=== PATIENT | female | born 1990 | race Caucasian/White ===

== ENCOUNTER 2016-11-16 21:20 | Emergency (ER) | payer OTHER ==
[~2016-11-16] VITALS: Ht 167.6 cm; Wt 122.5 kg
[~2016-11-16 21:20] MED LIST: AMOXICILLIN500 M2 PO; AMOXICILLIN500 MG PO; AMOXIL500 MG PO; ANAPROX DS550 MG PO; ANUSOL HC,ANUCO25 MG PO; AUGMENTIN 875 M1 TAB PO; AVPAK AZITHROM250 M1 PO; BACTRIM DS 8001 TA1 PO; BENTYL10 MG PO; BUSPIRONE10 MG PO; CEFDINIR300 MG PO; CIPRO250 MG PO; CIPRO500 MG PO; CIPRODEX 0.3%-7.5 ML OT; CLARITIN10 MG PO; COLACE-T100 MG PO; COMPAZINE10 MG PO; FE-TABS325 MG PO; FERROUS SULFAT325 MG PO; FLEXERIL5 MG PO; HYDROCODONE BIT1 T11 PO; IBU800 M1 PO; K-LOR 20MEQ20 ME1 PO; KEFLEX500 MG PO; LATU80TA PO; LOMOTIL 0.025 M1 TA1 PO; MACROBID100 M1 PO; MIRALAX POWDER255 GM PO; MOTRIN800 MG PO; NAPROSYN500 MG PO; NATURE'S BLEND F1 MG PO; NKHM; NORCO 325 MG-51 TAB PO; PENICILLIN VK500 MG PO; PERCOCET 325 MG1 TA5 PO; PHENERGAN25 M1 PO; PREDNISONE20 M1 PO; PRENATAL1 TA1 PO; PYRIDIUM200 MG PO; ROBAXIN500 MG PO; TAMIFLU75 MG PO; THERA TABS1 TAB PO; TORADOL10 MG PO; TRIMOX500 MG PO; ULTRAM50 MG PO; VITAMIN B-11 TAB PO; Vicodin 5/500 505 MG PO; XANAX0.25 MG PO; ZANTAC150 MG PO; ZITHROMAX Z PA250 MG PO; ZOFRAN 4 MG ED2 TAB PO; ZOFRAN ODT4 MG PO; ZOFRAN ODT4 MG SL; ZOFRAN ODT8 MG PO; ZOFRAN4 MG PO; ZYRTEC10 M2 PO; ZYRTEC10 MG PO; Zofran4 MG PO; [UNRECOGNIZED DRUG - OTHER] PO
[2016-11-16 21:42] VITALS: BP 143/57
[2016-11-16] MEDS ORDERED: NAPROSYN500 MG PO (22:07)
[2016-11-16] MEDS ORDERED: MEDROL DOSEPAK4 MG PO (22:07)
== END 2016-11-16 22:10 | disposition home or self-care (01) ==
LOC: ED 21:20
DX: M25.551 Pain in right hip (principal); F17.200 Nicotine dependence, unspecified, uncomplicated; Z90.49 Acquired absence of other specified parts of digestive tract; Z88.1 Allergy status to other antibiotic agents; Z88.8 Allergy status to other drugs, medicaments and biological substances

== ENCOUNTER 2016-11-26 16:15 | Emergency (ER) | payer OTHER ==
[~2016-11-26] VITALS: Ht 167.6 cm; Wt 122.5 kg
[~2016-11-26 16:15] MED LIST changes: +MEDROL DOSEPAK4 MG PO
[2016-11-26 16:49] VITALS: BP 108/53
[2016-11-26 17:05] LABS: BASO % 0.4 % (0.0-1.0); EOS # 0.1 10*3/uL (0.0-0.4); EOS % 1.2 % (1.0-4.0); HEMOGLOBIN 13.8 g/dl (12.0-16.0); LYMPH # 1.9 10*3/uL (1.3-4.4); LYMPH % 20.6 % (27.0-41.0); MEAN CELL VOLUME 90.3 fl (81.0-99.0); MEAN CORPUSCULAR HGB 30.4 pg (27.0-31.0); MEAN CORPUSCULAR HGB CONC 33.7 g/dl (33.0-37.0); MEAN PLATELET VOLUME 10.7 fl (9.6-12.3); MONO # 0.5 10*3/uL (0.1-1.0); MONO % 5.7 % (3.0-9.0); NEUT # 6.4 10*3/uL (2.3-7.9); NEUT % 71.9 % (47.0-73.0); PLATELET COUNT AUTOMATED 225 10*3/uL (130-400); RED BLOOD COUNT 4.54 10*6/uL (4.10-5.10); RED CELL DISTRI WIDTH 12.6 % (0-14.5)
[2016-11-26 17:21] LABS: ALBUMIN 3.7 gm/dl (3.1-4.5); ALKALINE PHOSPHATASE 69 U/L (45-117); BILIRUBIN, TOTAL 0.3 mg/dl (0.2-1.0); BUN 14 mg/dl (7-24); CARBON DIOXIDE 26 mmol/L (21-32); CHLORIDE 107 mmol/L (98-107); EST GLOM FILT AFRICAN AMERICAN > 60 ml/min; GLUCOSE 101 mg/dL (65-99); POTASSIUM 3.8 mmol/L (3.5-5.1); SGOT/AST 12 IU/L (3-35); SGPT/ALT 22 U/L (12-78); SODIUM 141 mmol/L (136-145)
[2016-11-26 17:25] LABS: TROPONIN I < 0.015 ng/ml (<0.045)
== END 2016-11-26 17:47 | disposition home or self-care (01) ==
LOC: ED 16:15
PROVIDERS: Nurse Practitioner Family
DX: F41.9 Anxiety disorder, unspecified (principal); Z90.49 Acquired absence of other specified parts of digestive tract; Z88.1 Allergy status to other antibiotic agents; Z88.2 Allergy status to sulfonamides; F17.210 Nicotine dependence, cigarettes, uncomplicated; Z79.899 Other long term (current) drug therapy

== ENCOUNTER 2017-01-19 23:09 | Emergency (ER) | payer OTHER ==
[~2017-01-19] VITALS: Ht 165.1 cm; Wt 122.5 kg
[2017-01-19 23:51] VITALS: BP 141/90
[2017-01-20] MEDS ORDERED: CYCLOBENZAPRINE5 M3 PO (01:28)
== END 2017-01-20 01:57 | disposition home or self-care (01) ==
LOC: ED 23:09
DX: M54.16 Radiculopathy, lumbar region (principal); G89.29 Other chronic pain; M54.9 Dorsalgia, unspecified; F17.200 Nicotine dependence, unspecified, uncomplicated; J45.909 Unspecified asthma, uncomplicated; G43.909 Migraine, unspecified, not intractable, without status migrainosus; Z88.1 Allergy status to other antibiotic agents; Z88.2 Allergy status to sulfonamides; Z90.49 Acquired absence of other specified parts of digestive tract

== ENCOUNTER 2017-02-16 21:57 | Emergency (ER) | payer OTHER ==
[~2017-02-16] VITALS: Ht 167.6 cm; Wt 122.5 kg
[~2017-02-16 21:57] MED LIST changes: +CYCLOBENZAPRINE5 M3 PO
[2017-02-16 22:28] LABS: BASO % 0.4 % (0.0-1.0); EOS % 0.3 % (1.0-4.0); HEMOGLOBIN 14.7 g/dl (12.0-16.0); LYMPH # 1.9 10*3/uL (1.3-4.4); LYMPH % 20.3 % (27.0-41.0); MEAN CELL VOLUME 91.5 fl (81.0-99.0); MEAN CORPUSCULAR HGB 31.3 pg (27.0-31.0); MEAN CORPUSCULAR HGB CONC 34.2 g/dl (33.0-37.0); MEAN PLATELET VOLUME 10.6 fl (9.6-12.3); MONO # 0.6 10*3/uL (0.1-1.0); MONO % 5.9 % (3.0-9.0); NEUT # 6.9 10*3/uL (2.3-7.9); NEUT % 72.8 % (47.0-73.0); PLATELET COUNT AUTOMATED 259 10*3/uL (130-400); RED CELL DISTRI WIDTH 12.7 % (0-14.5); WHITE BLOOD COUNT 9.5 10*3/uL (4.8-10.8)
[2017-02-16 22:38] LABS: PROTHROMBIN TIME 10.2 SECONDS (9.0-12.4)
[2017-02-16 22:45] LABS: ALBUMIN 3.9 gm/dl (3.1-4.5); ALKALINE PHOSPHATASE 68 U/L (45-117); BILIRUBIN, TOTAL 0.3 mg/dl (0.2-1.0); BUN 6 mg/dl (7-24); CARBON DIOXIDE 26 mmol/L (21-32); CHLORIDE 105 mmol/L (98-107); EST GLOM FILT AFRICAN AMERICAN > 60 ml/min; GLUCOSE 101 mg/dL (65-99); MAGNESIUM 2.1 mg/dL (1.5-2.1); POTASSIUM 3.9 mmol/L (3.5-5.1); SGOT/AST 22 IU/L (3-35); SGPT/ALT 26 U/L (12-78); SODIUM 137 mmol/L (136-145); TOTAL PROTEIN 7.6 gm/dL (6.4-8.2)
[2017-02-16 22:48] LABS: TROPONIN I < 0.015 ng/ml (<0.045)
[2017-02-16 23:20] VITALS: BP 122/72
== END 2017-02-16 23:45 | disposition home or self-care (01) ==
LOC: ED 21:57
PROVIDERS: Emergency Medicine
DX: R07.9 Chest pain, unspecified (principal); F17.200 Nicotine dependence, unspecified, uncomplicated; G43.909 Migraine, unspecified, not intractable, without status migrainosus; J45.909 Unspecified asthma, uncomplicated; Z90.49 Acquired absence of other specified parts of digestive tract; Z88.1 Allergy status to other antibiotic agents; Z88.8 Allergy status to other drugs, medicaments and biological substances

== ENCOUNTER 2017-04-22 20:04 | Emergency (ER) | payer OTHER ==
[~2017-04-22] VITALS: Ht 167.6 cm; Wt 122.5 kg
[2017-04-22 20:34] VITALS: BP 136/72
[2017-04-22 21:02] LABS: BASO % 0.5 % (0.0-1.0); EOS # 0.1 10*3/uL (0.0-0.4); EOS % 1.3 % (1.0-4.0); HEMATOCRIT 43.2 % (37.0-47.0); HEMOGLOBIN 14.7 g/dl (12.0-16.0); LYMPH # 2.4 10*3/uL (1.3-4.4); LYMPH % 30.7 % (27.0-41.0); MEAN CELL VOLUME 91.1 fl (81.0-99.0); MEAN PLATELET VOLUME 10.9 fl (9.6-12.3); MONO # 0.5 10*3/uL (0.1-1.0); NEUT # 4.7 10*3/uL (2.3-7.9); NEUT % 60.2 % (47.0-73.0); PLATELET COUNT AUTOMATED 211 10*3/uL (130-400); RED BLOOD COUNT 4.74 10*6/uL (4.10-5.10); WHITE BLOOD COUNT 7.8 10*3/uL (4.8-10.8)
[2017-04-22 21:09] LABS: BILIRUBIN NEGATIVE (NEGATIVE); BLOOD 1+ (NEGATIVE); CLARITY CLEAR (CLEAR); COLOR YELLOW (YELLOW); GLUCOSE NEGATIVE (NEGATIVE); KETONE NEGATIVE (NEGATIVE); LEUKO ESTERASE 1+ (NEGATIVE); NITRITE NEGATIVE (NEGATIVE); UROBILINOGEN 0.2 E.U./dl (0.2-1.0)
[2017-04-22 21:20] LABS: URINE AMPHETAMINES < 1000 (1000ng/ml); URINE BARBITURATES < 200 (200ng/ml); URINE BENZODIAZEPINES < 200 (200ng/ml); URINE CANNABINOIDS (THC) < 50 (50ng/ml); URINE COCAINE < 300 (300ng/ml); URINE METHADONE < 300 (300ng/ml); URINE OPIATES < 300 (300ng/ml)
[2017-04-22 21:22] LABS: BACTERIA 1+; EPITHELIAL CELLS 31-40; MUCOUS TRACE
[2017-04-22 21:24] LABS: ALBUMIN 3.8 gm/dl (3.1-4.5); ALKALINE PHOSPHATASE 64 U/L (45-117); BUN 4 mg/dl (7-24); CHLORIDE 108 mmol/L (98-107); CREATININE 0.84 mg/dL (0.55-1.02); POTASSIUM 3.5 mmol/L (3.5-5.1); SGOT/AST 18 IU/L (3-35); SGPT/ALT 32 U/L (12-78); SODIUM 141 mmol/L (136-145); TOTAL PROTEIN 7.4 gm/dL (6.4-8.2)
[2017-04-22 21:25] LABS: URINE PHENCYCLIDINE < 25 (25ng/ml)
[2017-04-22 21:26] LABS: TROPONIN I < 0.015 ng/ml (<0.045)
== END 2017-04-22 21:57 | disposition home or self-care (01) ==
LOC: ED 20:04
PROVIDERS: Physician Assistant; Student in an Organized Health Care Education/Training Program
DX: R07.9 Chest pain, unspecified (principal); G56.02 Carpal tunnel syndrome, left upper limb; F41.9 Anxiety disorder, unspecified; R06.02 Shortness of breath; F17.200 Nicotine dependence, unspecified, uncomplicated; Z88.1 Allergy status to other antibiotic agents

== ENCOUNTER 2017-05-26 15:46 | Emergency (ER) | payer OTHER ==
[~2017-05-26] VITALS: Ht 167.6 cm; Wt 124.7 kg
[2017-05-26] MEDS ORDERED: ZOFRAN4 MG PO (16:08)
[2017-05-26 16:13] LABS: BASO % 0.2 % (0.0-1.0); EOS % 0.5 % (1.0-4.0); HEMATOCRIT 44.1 % (37.0-47.0); LYMPH # 0.7 10*3/uL (1.3-4.4); LYMPH % 17.1 % (27.0-41.0); MEAN CELL VOLUME 90.7 fl (81.0-99.0); MEAN CORPUSCULAR HGB 30.9 pg (27.0-31.0); MEAN PLATELET VOLUME 11.1 fl (9.6-12.3); MONO # 0.4 10*3/uL (0.1-1.0); MONO % 9.6 % (3.0-9.0); NEUT % 72.1 % (47.0-73.0); PLATELET COUNT AUTOMATED 164 10*3/uL (130-400); RED BLOOD COUNT 4.86 10*6/uL (4.10-5.10); RED CELL DISTRI WIDTH 12.9 % (0-14.5); WHITE BLOOD COUNT 4.2 10*3/uL (4.8-10.8)
[2017-05-26 16:20] VITALS: BP 105/57
[2017-05-26 16:27] LABS: ALBUMIN 3.8 gm/dl (3.1-4.5); ALKALINE PHOSPHATASE 68 U/L (45-117); BUN 10 mg/dl (7-24); CHLORIDE 106 mmol/L (98-107); CREATININE 0.86 mg/dL (0.55-1.02); LIPASE 78 U/L (73-393); POTASSIUM 3.4 mmol/L (3.5-5.1); SGOT/AST 21 IU/L (3-35); SGPT/ALT 41 U/L (12-78); SODIUM 140 mmol/L (136-145); TOTAL PROTEIN 7.3 gm/dL (6.4-8.2)
[2017-05-26 16:52] LABS: BILIRUBIN 1+ (NEGATIVE); BLOOD 3+ (NEGATIVE); CLARITY SL CLOUDY (CLEAR); COLOR YELLOW (YELLOW); GLUCOSE NEGATIVE (NEGATIVE); KETONE TRACE (NEGATIVE); NITRITE NEGATIVE (NEGATIVE); SPECIFIC GRAVITY 1.025 (1.005-1.030)
[2017-05-26 16:57] LABS: LEUKO ESTERASE NEGATIVE (NEGATIVE)
[2017-05-26 17:01] LABS: BACTERIA TRACE; MUCOUS 2+; RBC 41-50 rbc/hpf (0-2)
== END 2017-05-26 16:48 | disposition home or self-care (01) ==
LOC: ED 15:46
PROVIDERS: Nurse Practitioner Family
DX: K52.9 Noninfective gastroenteritis and colitis, unspecified (principal); F41.9 Anxiety disorder, unspecified; J45.909 Unspecified asthma, uncomplicated; F32.9 Major depressive disorder, single episode, unspecified; E87.6 Hypokalemia; G43.909 Migraine, unspecified, not intractable, without status migrainosus; F17.200 Nicotine dependence, unspecified, uncomplicated; Z90.49 Acquired absence of other specified parts of digestive tract; Z88.2 Allergy status to sulfonamides; Z88.8 Allergy status to other drugs, medicaments and biological substances

== ENCOUNTER 2017-07-10 23:45 | Emergency (ER) | payer OTHER ==
[~2017-07-10] VITALS: Ht 165.1 cm; Wt 122.5 kg
[2017-07-10 23:59] VITALS: BP 131/68
[2017-07-11 00:24] LABS: BILIRUBIN NEGATIVE (NEGATIVE); BLOOD 2+ (NEGATIVE); CLARITY CLOUDY (CLEAR); COLOR YELLOW (YELLOW); GLUCOSE NEGATIVE (NEGATIVE); KETONE TRACE (NEGATIVE); LEUKO ESTERASE TRACE (NEGATIVE); NITRITE NEGATIVE (NEGATIVE); PH 5.5 (5.0-9.0); SPECIFIC GRAVITY 1.025 (1.005-1.030); UROBILINOGEN 0.2 E.U./dl (0.2-1.0)
[2017-07-11 00:45] LABS: BACTERIA 3+; EPITHELIAL CELLS 15-20
[2017-07-11] MEDS ORDERED: AMINOPHYLLIN200 MG PO (00:50)
== END 2017-07-11 01:14 | disposition home or self-care (01) ==
LOC: ED 23:45
PROVIDERS: Physician Assistant
DX: N39.0 Urinary tract infection, site not specified (principal); R30.0 Dysuria; R31.9 Hematuria, unspecified; F17.200 Nicotine dependence, unspecified, uncomplicated; Z90.49 Acquired absence of other specified parts of digestive tract; Z88.1 Allergy status to other antibiotic agents; Z88.8 Allergy status to other drugs, medicaments and biological substances

== ENCOUNTER 2017-12-06 21:58 | Emergency (ER) | payer OTHER ==
[~2017-12-06] VITALS: Ht 167.6 cm; Wt 124.7 kg
[~2017-12-06 21:58] MED LIST changes: +AMINOPHYLLIN200 MG PO
[2017-12-06] MEDS ORDERED: SYNTHROID25 MCG PO (22:36)
[2017-12-06 22:59] LABS: BASO % 0.5 % (0.0-1.0); EOS # 0.1 10*3/uL (0.0-0.4); EOS % 1.6 % (1.0-4.0); HEMATOCRIT 40.1 % (37.0-47.0); HEMOGLOBIN 13.6 g/dl (12.0-16.0); LYMPH # 2.1 10*3/uL (1.3-4.4); LYMPH % 33.2 % (27.0-41.0); MEAN CELL VOLUME 91.6 fl (81.0-99.0); MEAN CORPUSCULAR HGB 31.1 pg (27.0-31.0); MEAN CORPUSCULAR HGB CONC 33.9 g/dl (33.0-37.0); MEAN PLATELET VOLUME 11.5 fl (9.6-12.3); MONO # 0.4 10*3/uL (0.1-1.0); MONO % 6.7 % (3.0-9.0); NEUT # 3.7 10*3/uL (2.3-7.9); NEUT % 57.8 % (47.0-73.0); PLATELET COUNT AUTOMATED 179 10*3/uL (130-400); RED BLOOD COUNT 4.38 10*6/uL (4.10-5.10); RED CELL DISTRI WIDTH 12.8 % (0-14.5); WHITE BLOOD COUNT 6.4 10*3/uL (4.8-10.8)
[2017-12-06 23:11] LABS: ACT PARTIAL THROMBO TIME 24.9 SECONDS (20.8-31.5)
[2017-12-06 23:16] LABS: ALBUMIN 3.6 gm/dl (3.1-4.5); ALKALINE PHOSPHATASE 62 U/L (45-117); BUN 6 mg/dl (7-24); CHLORIDE 108 mmol/L (98-107); CREATININE 0.79 mg/dL (0.55-1.02); POTASSIUM 3.4 mmol/L (3.5-5.1); SGOT/AST 17 IU/L (3-35); SGPT/ALT 24 U/L (12-78); SODIUM 141 mmol/L (136-145); TOTAL PROTEIN 6.7 gm/dL (6.4-8.2)
[2017-12-06 23:18] LABS: TROPONIN I < 0.015 ng/ml (<0.045)
[2017-12-07 00:12] VITALS: BP 115/87
== END 2017-12-07 00:25 | disposition home or self-care (01) ==
LOC: ED 21:58
PROVIDERS: Emergency Medicine Emergency Medical Services
DX: R07.89 Other chest pain (principal); F17.200 Nicotine dependence, unspecified, uncomplicated; Z90.49 Acquired absence of other specified parts of digestive tract; Z79.899 Other long term (current) drug therapy; Z88.1 Allergy status to other antibiotic agents; Z88.8 Allergy status to other drugs, medicaments and biological substances

== ENCOUNTER 2018-01-25 07:37 | Emergency (ER) | payer OTHER ==
[~2018-01-25] VITALS: Ht 167.6 cm; Wt 122.5 kg
[~2018-01-25 07:37] MED LIST changes: +SYNTHROID25 MCG PO
[2018-01-25 07:39] VITALS: BP 137/65
[2018-01-25] MEDS ORDERED: CYCLOBENZAPRINE10 MG PO (07:52)
[2018-01-25] MEDS ORDERED: PREDNISONE50 MG PO (07:52)
== END 2018-01-25 08:05 | disposition home or self-care (01) ==
LOC: ED 07:37
DX: S39.012A Strain of muscle, fascia and tendon of lower back, initial encounter (principal); J45.909 Unspecified asthma, uncomplicated; G43.909 Migraine, unspecified, not intractable, without status migrainosus; F17.200 Nicotine dependence, unspecified, uncomplicated; Z88.2 Allergy status to sulfonamides; Z79.899 Other long term (current) drug therapy; Z90.49 Acquired absence of other specified parts of digestive tract; X50.0XXA Overexertion from strenuous movement or load, initial encounter; Y93.89 Activity, other specified; Y92.69 Other specified industrial and construction area as the place of occurrence of the external cause; Y99.8 Other external cause status

== ENCOUNTER 2018-05-09 07:32 | Emergency (ER) | payer OTHER ==
[~2018-05-09] VITALS: Ht 167.6 cm; Wt 127.0 kg
[~2018-05-09 07:32] MED LIST changes: +CYCLOBENZAPRINE10 MG PO; +PREDNISONE50 MG PO
[2018-05-09 07:34] VITALS: BP 121/70
[2018-05-09] MEDS ORDERED: VITAMIN D31000 UNI1 PO (07:35)
[2018-05-09] MEDS ORDERED: ATARAX,VISTARIL50 MG PO (08:27)
[2018-06-11] MEDS ORDERED: CLARITIN10 MG PO (05:47)
== END 2018-05-09 08:44 | disposition home or self-care (01) ==
LOC: ED 07:32
DX: L30.9 Dermatitis, unspecified (principal); J45.909 Unspecified asthma, uncomplicated; G43.909 Migraine, unspecified, not intractable, without status migrainosus; Z88.2 Allergy status to sulfonamides; Z79.899 Other long term (current) drug therapy

== ENCOUNTER 2019-02-25 17:51 | Emergency (ER) | payer OTHER ==
[~2019-02-25] VITALS: Ht 167.6 cm; Wt 124.7 kg
[~2019-02-25 17:51] MED LIST changes: +ATARAX,VISTARIL50 MG PO; +AUGMENTIN 875875 MG PO; +Motrin,Rufen800 MG PO; +TYLENOL325 M1 PO; +VITAMIN D31000 UNI1 PO
[2019-02-25 17:53] VITALS: BP 134/72
[2019-02-25] MEDS ORDERED: MEDROL DOSEPAK4 MG PO (20:18)
== END 2019-02-25 20:30 | disposition home or self-care (01) ==
LOC: ED 17:51
DX: H66.93 Otitis media, unspecified, bilateral (principal); H60.93 Unspecified otitis externa, bilateral; M54.2 Cervicalgia; R51 Headache; F17.200 Nicotine dependence, unspecified, uncomplicated; Z79.899 Other long term (current) drug therapy; Z88.2 Allergy status to sulfonamides

== ENCOUNTER 2020-02-21 19:31 | Emergency (ER) | payer OTHER ==
[~2020-02-21] VITALS: Ht 167.6 cm; Wt 145.1 kg
[2020-02-21 20:25] LABS: BASO % 0.5 % (0.0-1.0); EOS # 0.1 10*3/uL (0.0-0.4); EOS % 1.6 % (1.0-4.0); HEMATOCRIT 39.7 % (37.0-47.0); LYMPH # 2.1 10*3/uL (1.3-4.4); LYMPH % 25.4 % (27.0-41.0); MEAN CELL VOLUME 91.7 fl (81.0-99.0); MEAN CORPUSCULAR HGB CONC 32.7 g/dl (33.0-37.0); MEAN PLATELET VOLUME 10.4 fl (9.6-12.3); MONO # 0.6 10*3/uL (0.1-1.0); MONO % 7.2 % (3.0-9.0); NEUT # 5.4 10*3/uL (2.3-7.9); NEUT % 64.9 % (47.0-73.0); PLATELET COUNT AUTOMATED 213 10*3/uL (130-400); RED BLOOD COUNT 4.33 10*6/uL (4.10-5.10); WHITE BLOOD COUNT 8.3 10*3/uL (4.8-10.8)
[2020-02-21 20:36] LABS: ACT PARTIAL THROMBO TIME 27.5 SECONDS (20.0-32.1); INTERNATIONAL NORM RATIO 0.9 (2.0-3.5)
[2020-02-21 20:39] LABS: BILIRUBIN NEGATIVE (NEGATIVE); BLOOD 1+ (NEGATIVE); CLARITY CLEAR (CLEAR); COLOR YELLOW (YELLOW); GLUCOSE NEGATIVE (NEGATIVE); KETONE NEGATIVE (NEGATIVE); LEUKO ESTERASE TRACE (NEGATIVE); NITRITE NEGATIVE (NEGATIVE); UROBILINOGEN 0.2 E.U./dl (0.2-1.0)
[2020-02-21 20:41] LABS: ALKALINE PHOSPHATASE 69 U/L (45-117); BUN 8 mg/dl (7-24); CHLORIDE 109 mmol/L (98-107); POTASSIUM 3.7 mmol/L (3.5-5.1); SGOT/AST 19 IU/L (3-35); SGPT/ALT 37 U/L (12-78); SODIUM 141 mmol/L (136-145); TOTAL PROTEIN 6.4 gm/dL (6.4-8.2)
[2020-02-21 20:44] LABS: TROPONIN I < 0.015 ng/ml (<0.045)
[2020-02-21 20:46] LABS: BACTERIA 1+; EPITHELIAL CELLS 21-30; MUCOUS TRACE
[2020-02-21] MEDS ORDERED: KEFLEX500 M1 PO ×2 (22:30→23:56)
[2020-02-21] MEDS ORDERED: Motrin,Rufen800 MG PO (23:56)
[2020-02-22 00:07] VITALS: BP 124/84
== END 2020-02-22 00:32 | disposition home or self-care (01) ==
LOC: ED 19:31
PROVIDERS: Nurse Practitioner
DX: I26.99 Other pulmonary embolism without acute cor pulmonale (principal); N39.0 Urinary tract infection, site not specified; M79.651 Pain in right thigh; J45.909 Unspecified asthma, uncomplicated; G43.909 Migraine, unspecified, not intractable, without status migrainosus; F17.200 Nicotine dependence, unspecified, uncomplicated; Z88.2 Allergy status to sulfonamides; Z79.899 Other long term (current) drug therapy

== ENCOUNTER 2020-12-01 15:45 | Emergency (ER) | payer OTHER ==
[~2020-12-01] VITALS: Ht 167.6 cm; Wt 145.1 kg
[~2020-12-01 15:45] MED LIST changes: +KEFLEX500 M1 PO
[2020-12-01 15:48] VITALS: BP 131/81
== END 2020-12-01 17:08 | disposition home or self-care (01) ==
LOC: ED 15:45
DX: S05.01XA Injury of conjunctiva and corneal abrasion without foreign body, right eye, initial encounter (principal); H18.821 Corneal disorder due to contact lens, right eye; F17.200 Nicotine dependence, unspecified, uncomplicated; Z90.49 Acquired absence of other specified parts of digestive tract; Z79.899 Other long term (current) drug therapy; Z88.1 Allergy status to other antibiotic agents; Z88.8 Allergy status to other drugs, medicaments and biological substances; X58.XXXA Exposure to other specified factors, initial encounter; Y93.89 Activity, other specified; Y92.69 Other specified industrial and construction area as the place of occurrence of the external cause; Y99.9 Unspecified external cause status

== ENCOUNTER → 2020-12-15 | Outpatient (CLI) | payer OTHER ==
[2020-12-15 11:08] LABS: BASO # 0.1 10*3/uL (0.0-0.1); BASO % 0.9 % (0.0-1.0); EOS # 0.1 10*3/uL (0.0-0.4); EOS % 1.4 % (1.0-4.0); LYMPH # 1.7 10*3/uL (1.3-4.4); LYMPH % 29.7 % (27.0-41.0); MEAN CELL VOLUME 92.6 fl (81.0-99.0); MEAN CORPUSCULAR HGB 30.5 pg (27.0-31.0); MEAN PLATELET VOLUME 10.9 fl (9.6-12.3); MONO # 0.4 10*3/uL (0.1-1.0); MONO % 6.4 % (3.0-9.0); NEUT # 3.6 10*3/uL (2.3-7.9); NEUT % 61.4 % (47.0-73.0); PLATELET COUNT AUTOMATED 239 10*3/uL (130-400); RED BLOOD COUNT 4.75 10*6/uL (4.10-5.10); RETICULOCYTE % 1.17 % (0.50-2.50); WHITE BLOOD COUNT 5.8 10*3/uL (4.8-10.8)
[2020-12-15 11:19] LABS: BILIRUBIN Negative (Negative); BLOOD Trace-Lysed (Negative); CLARITY Clear (Clear); COLOR Yellow (Yellow); GLUCOSE Negative (Negative); KETONE Negative (Negative); LEUKO ESTERASE Trace (Negative); NITRITE Negative (Negative); SPECIFIC GRAVITY 1.015 (1.001-1.030)
[2020-12-15 11:46] LABS: ALBUMIN 3.5 gm/dl (3.1-4.5); BUN 8 mg/dl (7-24); CHLORIDE 107 mmol/L (98-107); CHOLESTEROL 161 mg/dL (<200); GAMMA GLUTAMYL TRANSPEPTIDASE 19 U/L (5-55); POTASSIUM 3.5 mmol/L (3.5-5.1); SODIUM 140 mmol/L (136-145); THYROXINE (T4) TOTAL 5.5 ug/dl (4.8-13.9); TRIGLYCERIDES 127 mg/dl (<150)
[2020-12-15 11:47] LABS: BACTERIA 2+; EPITHELIAL CELLS 16-20; MUCOUS 2+
[2020-12-15 11:56] LABS: ALKALINE PHOSPHATASE 70 U/L (45-117); CREATININE 0.71 mg/dL (0.55-1.02); IRON 81 ug/dL (50-170); LDL CHOLESTEROL 100 mg/dL (9-159); SGOT/AST 18 IU/L (3-35); SGPT/ALT 36 U/L (12-78); T3 UPTAKE 31 % (31-39); TOTAL IRON BINDING CAPACITY 276 ug/dl (250-450); TOTAL PROTEIN 6.9 gm/dL (6.4-8.2)
[2020-12-15 12:31] LABS: VITAMIN D, 25-HYDROXY 27.3 ng/mL (30-100)
== END | disposition home or self-care (01) ==
LOC: LAB 10:51
PROVIDERS: ATTEND Family Medicine
DX: R53.83 Other fatigue (principal); R79.89 Other specified abnormal findings of blood chemistry; E78.5 Hyperlipidemia, unspecified; R74.8 Abnormal levels of other serum enzymes; E55.9 Vitamin D deficiency, unspecified

== ENCOUNTER 2021-07-08 16:21 | Emergency (ER) | payer OTHER ==
[2021-07-08 16:31] VITALS: BP 112/78
== END 2021-07-08 17:29 | disposition left against medical advice (07) ==
LOC: ED 16:21
DX: M79.641 Pain in right hand (principal); M25.531 Pain in right wrist; R20.0 Anesthesia of skin; Z53.21 Procedure and treatment not carried out due to patient leaving prior to being seen by health care provider

== ENCOUNTER → 2021-12-14 | Outpatient (CLI) | payer OTHER ==
[2021-12-14 11:32] LABS: BASO % 0.5 % (0.0-1.0); EOS # 0.1 10*3/uL (0.0-0.4); EOS % 1.5 % (1.0-4.0); LYMPH # 1.6 10*3/uL (1.3-4.4); LYMPH % 27.1 % (27.0-41.0); MEAN CELL VOLUME 94.6 fl (81.0-99.0); MEAN CORPUSCULAR HGB CONC 33.9 g/dl (33.0-37.0); MEAN PLATELET VOLUME 11.2 fl (9.6-12.3); MONO # 0.3 10*3/uL (0.1-1.0); MONO % 5.4 % (3.0-9.0); NEUT % 65.3 % (47.0-73.0); PLATELET COUNT AUTOMATED 209 10*3/uL (130-400); RED BLOOD COUNT 4.65 10*6/uL (4.10-5.10); RED CELL DISTRI WIDTH 13.1 % (0-14.5); RETICULOCYTE % 1.62 % (0.50-2.50); WHITE BLOOD COUNT 6.1 10*3/uL (4.8-10.8)
[2021-12-14 11:41] LABS: BILIRUBIN Negative (Negative); BLOOD Negative (Negative); CLARITY Clear (Clear); COLOR Yellow (Yellow); GLUCOSE Negative (Negative); KETONE Negative (Negative); LEUKO ESTERASE Negative (Negative); NITRITE Negative (Negative); PH 6.5 (4.5-8.0); UROBILINOGEN 0.2 E.U./dl (0.0-1.0)
[2021-12-14 11:56] LABS: ALKALINE PHOSPHATASE 69 U/L (45-117); BUN 6 mg/dl (7-24); CHLORIDE 110 mmol/L (98-107); CHOLESTEROL 161 mg/dL (<200); CREATININE 0.76 mg/dL (0.55-1.02); GAMMA GLUTAMYL TRANSPEPTIDASE 27 U/L (5-55); IRON 82 ug/dL (50-170); LDL CHOLESTEROL 97 mg/dL (9-159); POTASSIUM 3.6 mmol/L (3.5-5.1); SGOT/AST 18 IU/L (3-35); SGPT/ALT 31 U/L (12-78); SODIUM 143 mmol/L (136-145); THYROXINE (T4) TOTAL 8.7 ug/dl (4.8-13.9); TOTAL IRON BINDING CAPACITY 286 ug/dl (250-450); TRIGLYCERIDES 101 mg/dl (<150)
[2021-12-14 12:03] LABS: TOTAL PROTEIN 6.9 gm/dL (6.4-8.2)
[2021-12-14 12:51] LABS: FERRITIN 36.9 ng/mL (10.0-291.0)
[2021-12-14 13:25] LABS: EPITHELIAL CELLS 0-2; RBC 0-2 rbc/hpf (0-2); WBC 0-2 wbc/hpf (0-5)
[2021-12-14 13:29] LABS: VITAMIN D, 25-HYDROXY 28.9 ng/mL (30-100)
[2021-12-14 15:48] LABS: T3 UPTAKE 33 % (31-39)
== END | disposition home or self-care (01) ==
LOC: LAB 10:40
PROVIDERS: ATTEND Family Medicine
DX: E78.5 Hyperlipidemia, unspecified (principal); R79.89 Other specified abnormal findings of blood chemistry; R53.83 Other fatigue; R74.8 Abnormal levels of other serum enzymes; E55.9 Vitamin D deficiency, unspecified

== ENCOUNTER 2022-04-15 13:26 | Emergency (ER) | payer OTHER ==
[~2022-04-15] VITALS: Ht 167.6 cm; Wt 145.1 kg
[2022-04-15 13:32] VITALS: BP 143/66
== END 2022-04-15 15:21 | disposition home or self-care (01) ==
LOC: ED 13:26
DX: M79.672 Pain in left foot (principal); F17.200 Nicotine dependence, unspecified, uncomplicated; Z90.49 Acquired absence of other specified parts of digestive tract; Z79.899 Other long term (current) drug therapy; Z88.1 Allergy status to other antibiotic agents; X50.1XXA Overexertion from prolonged static or awkward postures, initial encounter; Y93.01 Activity, walking, marching and hiking; Y92.89 Other specified places as the place of occurrence of the external cause; Y99.9 Unspecified external cause status

== ENCOUNTER 2022-07-26 08:46 | Emergency (ER) | payer OTHER ==
[~2022-07-26] VITALS: Wt 145.1 kg
[2022-07-26 08:50] VITALS: BP 142/64
[2022-07-26] MEDS ORDERED: BACITRACIN28.4 GM T (09:10)
[2022-07-26] MEDS ORDERED: IBU800 M1 PO (09:10)
== END 2022-07-26 09:48 | disposition home or self-care (01) ==
LOC: ED 08:46
DX: T23.101A Burn of first degree of right hand, unspecified site, initial encounter (principal); X10.2XXA Contact with fats and cooking oils, initial encounter; Y93.89 Activity, other specified; Y92.89 Other specified places as the place of occurrence of the external cause; Y99.8 Other external cause status

== ENCOUNTER 2022-10-21 00:04 | Emergency (ER) | payer OTHER ==
[~2022-10-21] VITALS: Ht 167.6 cm; Wt 145.1 kg
[2022-10-21 00:04] VITALS: BP 134/80
[~2022-10-21 00:04] MED LIST changes: +BACITRACIN28.4 GM T
[2022-10-21] MEDS ORDERED: PREDNISONE10 MG PO (00:22)
== END 2022-10-21 00:30 | disposition home or self-care (01) ==
LOC: ED 00:04
DX: M77.01 Medial epicondylitis, right elbow (principal); F32.A Depression, unspecified; F41.9 Anxiety disorder, unspecified; J45.909 Unspecified asthma, uncomplicated; G43.909 Migraine, unspecified, not intractable, without status migrainosus; Z88.2 Allergy status to sulfonamides; Z88.8 Allergy status to other drugs, medicaments and biological substances; Z90.49 Acquired absence of other specified parts of digestive tract; F10.10 Alcohol abuse, uncomplicated; Z87.891 Personal history of nicotine dependence

== ENCOUNTER 2022-11-20 11:57 | Emergency (ER) | payer OTHER ==
[~2022-11-20] VITALS: Ht 167.6 cm; Wt 136.1 kg
[~2022-11-20 11:57] MED LIST changes: +PREDNISONE10 MG PO
[2022-11-20 12:08] VITALS: BP 128/79
[2022-11-20 12:32] LABS: BILIRUBIN Negative (Negative); BLOOD 1+ (Negative); CLARITY Clear (Clear); COLOR Yellow (Yellow); GLUCOSE Negative (Negative); KETONE Negative (Negative); LEUKO ESTERASE Negative (Negative); NITRITE Negative (Negative); PH 6.5 (4.5-8.0); SPECIFIC GRAVITY <= 1.005 (1.001-1.030); UROBILINOGEN 0.2 E.U./dl (0.0-1.0)
[2022-11-20 12:50] LABS: BASO % 0.2 % (0.0-1.0); EOS # 0.1 10*3/uL (0.0-0.4); EOS % 1.3 % (1.0-4.0); HEMATOCRIT 43.8 % (37.0-47.0); LYMPH # 1.1 10*3/uL (1.3-4.4); LYMPH % 24.6 % (27.0-41.0); MEAN CELL VOLUME 93.6 fl (81.0-99.0); MEAN CORPUSCULAR HGB 31.2 pg (27.0-31.0); MEAN CORPUSCULAR HGB CONC 33.3 g/dl (33.0-37.0); MEAN PLATELET VOLUME 10.2 fl (9.6-12.3); MONO # 0.5 10*3/uL (0.1-1.0); MONO % 10.8 % (3.0-9.0); NEUT # 2.9 10*3/uL (2.3-7.9); NEUT % 62.9 % (47.0-73.0); PLATELET COUNT AUTOMATED 212 10*3/uL (130-400); RED BLOOD COUNT 4.68 10*6/uL (4.10-5.10); WHITE BLOOD COUNT 4.6 10*3/uL (4.8-10.8)
[2022-11-20 13:07] LABS: BACTERIA TRACE; RBC 0-2 rbc/hpf (0-2)
[2022-11-20 13:11] LABS: ALKALINE PHOSPHATASE 57 U/L (46-116); CHLORIDE 111 mmol/L (98-107); LIPASE 26 U/L (12-53); POTASSIUM 3.5 mmol/L (3.4-5.1); SGPT/ALT 13 U/L (10-49); TOTAL PROTEIN 6.4 gm/dL (6.0-8.0)
[2022-11-20 13:23] LABS: BUN < 5 mg/dl (9-23)
[2022-11-20] MEDS ORDERED: ONDANSETRON4 MG SL (14:57)
== END 2022-11-20 15:14 | disposition home or self-care (01) ==
LOC: ED 11:57
PROVIDERS: Nurse Practitioner Family
DX: K52.9 Noninfective gastroenteritis and colitis, unspecified (principal); Z88.2 Allergy status to sulfonamides; Z88.8 Allergy status to other drugs, medicaments and biological substances; Z90.49 Acquired absence of other specified parts of digestive tract; F17.200 Nicotine dependence, unspecified, uncomplicated; F10.10 Alcohol abuse, uncomplicated

== ENCOUNTER 2023-03-15 08:06 | Emergency (ER) | payer OTHER ==
[~2023-03-15] VITALS: Ht 170.1 cm; Wt 145.1 kg
[~2023-03-15 08:06] MED LIST changes: +ONDANSETRON4 MG SL
[2023-03-15 08:19] VITALS: BP 139/58
== END 2023-03-15 09:45 | disposition home or self-care (01) ==
LOC: ED 08:06
DX: S60.221A Contusion of right hand, initial encounter (principal); F32.A Depression, unspecified; F41.9 Anxiety disorder, unspecified; J45.909 Unspecified asthma, uncomplicated; G43.909 Migraine, unspecified, not intractable, without status migrainosus; Z88.2 Allergy status to sulfonamides; Z88.8 Allergy status to other drugs, medicaments and biological substances; Z90.49 Acquired absence of other specified parts of digestive tract; F17.200 Nicotine dependence, unspecified, uncomplicated; F10.10 Alcohol abuse, uncomplicated; W22.8XXA Striking against or struck by other objects, initial encounter; Y93.89 Activity, other specified; Y92.89 Other specified places as the place of occurrence of the external cause; Y99.8 Other external cause status

== ENCOUNTER 2023-06-15 22:31 | Emergency (ER) | payer OTHER ==
[~2023-06-15] VITALS: Ht 167.6 cm; Wt 145.1 kg
[2023-06-15 23:33] VITALS: BP 147/83
[2023-06-16] MEDS ORDERED: ONDANSETRON4 MG SL (01:41)
== END 2023-06-16 01:59 | disposition home or self-care (01) ==
LOC: ED 22:31
DX: K52.9 Noninfective gastroenteritis and colitis, unspecified (principal); R11.2 Nausea with vomiting, unspecified; F32.A Depression, unspecified; F41.9 Anxiety disorder, unspecified; J45.909 Unspecified asthma, uncomplicated; G43.909 Migraine, unspecified, not intractable, without status migrainosus; Z20.822 Contact with and (suspected) exposure to COVID-19; Z88.2 Allergy status to sulfonamides; Z88.8 Allergy status to other drugs, medicaments and biological substances; Z90.49 Acquired absence of other specified parts of digestive tract; F17.200 Nicotine dependence, unspecified, uncomplicated; F10.10 Alcohol abuse, uncomplicated

== ENCOUNTER 2023-11-03 13:02 | Emergency (ER) | payer SELFPAY ==
[~2023-11-03] VITALS: Wt 145.1 kg
[2023-11-03 13:11] VITALS: BP 124/71
[2023-11-03] MEDS ORDERED: SODIUM CHLORIDE 0.9% 1,000 ML IV ONE (13:40)
[2023-11-03] MEDS ORDERED: Ketorolac Tromethamine 30 MG/ML VIAL IV ONE (13:40)
[2023-11-03] MEDS ORDERED: IOHEXOL 300 MG/ML 100 ML VIAL IV ONE (13:40)
[2023-11-03] MEDS ORDERED: Ondansetron Hydrochloride 4 MG/2 ML VIAL IV ONE (13:40)
[2023-11-03 13:52] LABS: BASO % 0.6 % (0.0-1.0); EOS # 0.1 10*3/uL (0.0-0.4); EOS % 0.9 % (1.0-4.0); HEMATOCRIT 42.8 % (37.0-47.0); LYMPH # 1.7 10*3/uL (1.3-4.4); LYMPH % 32.1 % (27.0-41.0); MEAN CELL VOLUME 91.3 fl (81.0-99.0); MEAN CORPUSCULAR HGB 30.3 pg (27.0-31.0); MEAN CORPUSCULAR HGB CONC 33.2 g/dl (33.0-37.0); MEAN PLATELET VOLUME 10.6 fl (9.6-12.3); MONO # 0.3 10*3/uL (0.1-1.0); MONO % 6.3 % (3.0-9.0); NEUT # 3.2 10*3/uL (2.3-7.9); NEUT % 59.7 % (47.0-73.0); PLATELET COUNT AUTOMATED 228 10*3/uL (130-400); RED BLOOD COUNT 4.69 10*6/uL (4.10-5.10); RED CELL DISTRI WIDTH 12.5 % (0-14.5); WHITE BLOOD COUNT 5.4 10*3/uL (4.8-10.8)
[2023-11-03 14:00] LABS: BILIRUBIN Negative (Negative); BLOOD Negative (Negative); CLARITY Clear (Clear); COLOR Yellow (Yellow); GLUCOSE Negative (Negative); KETONE Negative (Negative); LEUKO ESTERASE Negative (Negative); NITRITE Negative (Negative); UROBILINOGEN 0.2 E.U./dl (0.0-1.0)
[2023-11-03 14:11] LABS: BACTERIA 1+; EPITHELIAL CELLS 0-2; WBC 0-2 wbc/hpf (0-5)
[2023-11-03 14:15] LABS: ALKALINE PHOSPHATASE 61 U/L (46-116); BUN 5 mg/dl (9-23); CHLORIDE 108 mmol/L (98-107); LIPASE 35 U/L (12-53); SGPT/ALT 30 U/L (5-49); TOTAL PROTEIN 6.7 gm/dL (6.0-8.0)
== END 2023-11-03 15:57 | disposition home or self-care (01) ==
LOC: ED 13:02
PROVIDERS: Physician Assistant
DX: R10.31 Right lower quadrant pain (principal); R42 Dizziness and giddiness; F32.A Depression, unspecified; F41.9 Anxiety disorder, unspecified; J45.909 Unspecified asthma, uncomplicated; G43.909 Migraine, unspecified, not intractable, without status migrainosus; Z88.2 Allergy status to sulfonamides; Z88.8 Allergy status to other drugs, medicaments and biological substances; Z90.49 Acquired absence of other specified parts of digestive tract; F10.10 Alcohol abuse, uncomplicated; F17.200 Nicotine dependence, unspecified, uncomplicated

== ENCOUNTER 2025-02-15 11:45 | Emergency (ER) | payer SELFPAY ==
[~2025-02-15] VITALS: Ht 167.6 cm; Wt 145.1 kg
[2025-02-15 12:44] VITALS: BP 127/73
[2025-02-15] MEDS ORDERED: Metoclopramide Hydrochloride 10 MG/2 ML VIAL IV ONE (14:15)
[2025-02-15] MEDS ORDERED: diphenhydrAMINE hydrochloride 50 MG/ML VIAL IV ONE (14:15)
[2025-02-15] MEDS ORDERED: FAMOTIDINE 50 ML IV ONE (14:15)
[2025-02-15] MEDS ORDERED: SODIUM CHLORIDE 0.9% 1,000 ML IV ONE (14:15)
[2025-02-15 14:39] LABS: BILIRUBIN Negative (Negative); BLOOD Negative (Negative); CLARITY Clear (Clear); COLOR Yellow (Yellow); KETONE Trace (Negative); LEUKO ESTERASE Negative (Negative); NITRITE Negative (Negative); PH 7.5 (4.5-8.0); SPECIFIC GRAVITY 1.025 (1.001-1.030); UROBILINOGEN 1.0 E.U./dl (0.0-1.0)
[2025-02-15 14:51] LABS: BASO # 0.0 10*3/uL (0.0-0.1); BASO % 0.5 % (0.0-1.0); EOS # 0.1 10*3/uL (0.0-0.4); EOS % 1.6 % (1.0-4.0); MEAN CELL VOLUME 92.3 fl (81.0-99.0); MEAN CORPUSCULAR HGB 29.7 pg (27.0-31.0); MEAN PLATELET VOLUME 10.3 fl (9.6-12.3); MONO # 0.5 10*3/uL (0.1-1.0); MONO % 6.8 % (3.0-9.0); NEUT # 4.6 10*3/uL (2.3-7.9); NEUT % 61.8 % (47.0-73.0); NUCLEATED RED BLOOD CELL 0.0 % (0.0-0.0); NUCLEATED RED BLOOD CELL 0.0 10*3/uL (0.0-0.0); PLATELET COUNT AUTOMATED 229 10*3/uL (130-400); RED CELL DISTRI WIDTH 12.8 % (0-14.5)
[2025-02-15 14:56] LABS: BACTERIA 1+; MUCOUS 3+; RBC 0-2 rbc/hpf (0-2); WBC 0-2 wbc/hpf (0-5)
[2025-02-15 15:20] LABS: BUN 7 mg/dl (9-23)
[2025-02-15 15:25] LABS: B-hCG (QUALITATIVE) NEGATIVE (NEGATIVE)
[2025-02-15] MEDS ORDERED: Ondansetron4 MG PO (15:49)
[2025-02-15] MEDS ORDERED: PEPCID20 MG PO (15:49)
== END 2025-02-15 17:27 | disposition home or self-care (01) ==
LOC: ED 11:45
PROVIDERS: Emergency Medicine
DX: K29.70 Gastritis, unspecified, without bleeding (principal); R11.2 Nausea with vomiting, unspecified; R10.12 Left upper quadrant pain; Z90.49 Acquired absence of other specified parts of digestive tract; Z88.1 Allergy status to other antibiotic agents; Z88.8 Allergy status to other drugs, medicaments and biological substances